=== PATIENT | male | born 2000 | race African-American/Black ===

== ENCOUNTER 2019-07-20 13:52 | Emergency (ER) | payer BC ==
[~2019-07-20] VITALS: Ht 172.7 cm; Wt 77.1 kg
[2019-07-20 13:59] VITALS: BP_SYST 128
[2019-07-20] MEDS ORDERED: IBUPROFEN 600 MG TABLET PO ONE (14:15)
[2019-07-20 15:45] VITALS: BP_SYST 118
== END 2019-07-20 15:45 | disposition home or self-care (01) ==
LOC: SED 13:52
DX: S93.401A Sprain of unspecified ligament of right ankle, initial encounter (principal); R03.0 Elevated blood-pressure reading, without diagnosis of hypertension; Z91.018 Allergy to other foods; X50.9XXA Other and unspecified overexertion or strenuous movements or postures, initial encounter; Y93.67 Activity, basketball; Y92.89 Other specified places as the place of occurrence of the external cause; Y99.8 Other external cause status
CPT/HCPCS: 99283